=== PATIENT | female | born 1980 | race Caucasian/White ===

== ENCOUNTER → 2023-06-03 16:02 | Outpatient (REF) | payer OTHER, SELFPAY | LOC: HWWDC 16:02 | PROVIDERS: ATTENDING PHYSICIAN Family Medicine; REFERRING PHYSICIAN Student in an Organized Health Care Education/Training Program | DX: Z12.31 Encounter for screening mammogram for malignant neoplasm of breast (principal) | CPT/HCPCS: 77063; 77067 ==

== ENCOUNTER → 2023-09-01 11:07 | Outpatient (REF) | payer OTHER, SELFPAY | LOC: WDC 11:07 | PROVIDERS: ATTENDING PHYSICIAN Family Medicine | DX: R92.333 Mammographic heterogeneous density, bilateral breasts (principal) | CPT/HCPCS: 76641 ==

== ENCOUNTER → 2024-11-01 08:19 | Outpatient (REF) | payer OTHER, SELFPAY | LOC: WDC 08:19 | PROVIDERS: ATTENDING PHYSICIAN Student in an Organized Health Care Education/Training Program; FAMILY PHYSICIAN Family Medicine | DX: Z12.31 Encounter for screening mammogram for malignant neoplasm of breast (principal) | CPT/HCPCS: 77063; 77067 ==